=== PATIENT | female | born 1990 ===

== ENCOUNTER 2019-02-26 10:15 | Day surgery (SDC) | payer OTHER ==
[2019-02-26] VITALS (9 sets, daily range): BP systolic 98–116; BP diastolic 61–70
[~2019-02-26] VITALS: Ht 152.4 cm; Wt 68.0 kg
--- NOTE | 2019-02-26 07:12 | Pre-Procedure Note/Attestation ---
Pre-Procedure Note/Attestation Complete Prior to Procedure Planned Procedure: left Procedure Narrative: left elbow olecranon ORIF Indications for Procedure Pre-Operative Diagnosis: left elbow olecranon fx Attestation I attest that I discussed the nature of the procedure; its benefits; risks and complications; and alternatives (and the risks and benefits of such alternatives ), prior to the procedure, with the patient (or the patient's legal cash posting representative). I attest that, if there was a reasonable possibility of needing a blood transfusion, the patient (or the patient's legal cash posting representative) was given the [facility] standardized written summary, pursuant to the Alexy Dianna Blood Safety Act ([place] Health and Safety Code # 1645, as amended). I attest that I re-evaluated the patient just prior to the surgery and that there has been no change in the patient's H&P, except as documented below: NONE Mello Arias MD February 26, 2019 07:12
[~2019-02-26 10:15] MED LIST: NKM; ceFAZolin 1gm IVPB IVPB ONE; celeBREX 200mg Cap **SURGERY PATIENTS ONLY ORAL ONE; oxyCONTIN 20mg tab ORAL ONE
[2019-02-26] MEDS ORDERED: oxyCONTIN 20mg tab ORAL ONE (10:55)
[2019-02-26] MEDS ORDERED: celeBREX 200mg Cap **SURGERY PATIENTS ONLY ORAL ONE (10:55)
[2019-02-26] MEDS ORDERED: Midazolam 2mg/2ml Inj ONE (12:18)
[2019-02-26] MEDS ORDERED: fentaNYL 100 mcg/2 mL IV ONE (12:18)
[2019-02-26] MEDS ORDERED: Propofol 200mg/20ml IV ONE (12:19)
[2019-02-26] MEDS ORDERED: Lidocaine 1% MPF 10mg/ml 5ml ONE (12:19)
[2019-02-26] MEDS ORDERED: Ketorolac 30mg Inj ONE (12:21)
[2019-02-26] MEDS ORDERED: Sterile Water Irrig 1000ml IRRIG ONE (13:00)
[2019-02-26] MEDS ORDERED: LR 1000ml ONE (13:00)
[2019-02-26] MEDS ORDERED: Bacitracin 50000 Units Vial ONE ×2 (13:04→13:05)
[2019-02-26] MEDS ORDERED: Bupivacaine w/Epi 0.5% 30ml Vial INJ ONE (13:04)
[2019-02-26] MEDS ORDERED: NeoSporin Gu Irrig 1ml Amp IRRIG ONE ×2 (13:04→13:05)
[2019-02-26] MEDS ORDERED: TransDerm Scop 1.5mg/72HR Patch TDERMAL ONE ×2 (13:11→14:00)
[2019-02-26] MEDS ORDERED: Tylenol #3 tab (300mg/30mg) ORAL PRN (13:30)
[2019-02-26] MEDS ORDERED: HYDROcodone/Acetamin 5/325 tab ORAL PRN (13:30)
[2019-02-26] MEDS ORDERED: HYDROmorphone 1mg/ml Carpuject SUBQ PRN (13:30)
[2019-02-26] MEDS ORDERED: NS Irrig 1000ml IRRIG ONE ×2 (13:31→13:56)
--- NOTE | 2019-02-26 13:59 | Anethesia Preoperative Eval ---
Anesthesia Pre-op PMH/ROS General Date of Evaluation: February 26, 2019 Time of Evaluation: 13:10 Anesthesiologist: Soraya ASA Score: ASA 2 Mallampati Score Class I : Soft palate, uvula, fauces, pillars visible Class II: Soft palate, uvula, fauces visible Class III: Soft palate, base of uvula visible Class IV: Only hard plate visible Mallampati Classification: Class II Surgeon: Juana Diagnosis: L elbow Fx. Surgical Procedure: ORIF of L elbow Fx Anesthesia History: none Family History: no anesthesia problems Allergies: Coded Allergies: No Known Allergies (Unverified , 02/26/19) Medications: see eMAR Patient NPO?: Yes Past Medical History Cardiovascular: Denies: HTN, CAD, MA, valve dz, arrhythmia, other Pulmonary: Denies: asthma, COPD, DREAD, other Gastrointestinal/Genitourinary: Reports: GERD - mild; Denies: CRI, ESRD, other Neurologic/Psychiatric: Denies: dementia, CVA, depression/anxiety, TIA, other Endocrine: Denies: DM, hypothyroidism, steroids, other HEENT: Denies: cataract (L), cataract (R), glaucoma, [place] (L), [place] (R), other Hematology/Immune: Denies: anemia, DVT, bleeding disorder, other Musculoskeletal/Integumentary: Denies: OA, RA, DJD, DDD, edema, other Other: other - overweight PMH Narrative: as above PSxH Narrative: Breasts implants Anesthesia Pre-op Phys. Exam Physician Exam Last Vital Signs Date Time Temp Pulse Resp B/P (MAP) Pulse Ox O2 Delivery O2 Flow Rate FiO2 02/26/19 10:44 Room Air 02/26/19 10:43 98.2 82 18 100/70 98 Constitutional: NAD Neurologic: CN 2-12 intact Cardiovascular: RRR, no M/R/G Respiratory: CTA Gastrointestinal: S/NT/ND Airway Exam Mallampati Score: Class II MO: full Neck: flexible ROM: full Teeth: intact Dentures: no upper, no lower Anesthesia Pre-op A/P Labs see chart Urine Test Test 02/26/19 10:25 Urine HCG, Qualitative Negative (NEGATIVE) Studies Pre-op Studies: EKG - NSR Risk Assessment & Plan Assessment: ASA2 Plan: GA with LMA Status Change Before Surgery: No Pre-Antibiotics Drug: Ancef 1gr. Given Within 1 Hr of Incision: Yes Time Given: 13:40 Rocky Lira MD February 26, 2019 13:59
[2019-02-26] MEDS ORDERED: Midazolam 2mg/2ml Inj IVP PRN (14:00)
[2019-02-26] MEDS ORDERED: Ketorolac 30mg Inj IV PRN (14:00)
[2019-02-26] MEDS ORDERED: DiphenhydrAMINE 50mg/ml Inj IVP PRN (14:00)
[2019-02-26] MEDS ORDERED: Meperidine 50mg/ml Inj(FOR RIGORS ONLY) IV PRN (14:00)
[2019-02-26] MEDS ORDERED: Metoclopramide 10mg/2ml Inj IVP PRN (14:00)
[2019-02-26] MEDS ORDERED: LR 1000ml 1,000 ML IVLG SCH (14:00)
--- NOTE | 2019-02-26 14:45 | Brief Operative Note ---
Immediate Post Operative Note Operative Note Chief Complaint: left arm pain Pre-op Diagnosis: left olecranon fx Procedure: left olecranon ORIF Post-op Diagnosis: same as pre-op Findings: consistent w/pre-op dx studies Surgeon: md gus Customer Resource Specialist: darcy Taylor Anesthesiologist: md isidro Anesthesia: general Specimen: none Complications: none Condition: stable Fluids: ns Estimated Blood Loss: minimal Drains: none Implant(s) used?: Yes - Annie West February 26, 2019 14:45
--- NOTE | 2019-02-26 14:55 | Immediate Post-Op Evaluation ---
Immediate Post-Op Evalulation Immediate Post-Op Evalulation Procedure: ORIF of L elbow Fx Date of Evaluation: February 26, 2019 Time of Evaluation: 14:54 IV Fluids: 800 Blood Products: none Estimated Blood Loss: min Urinary Output: none Blood Pressure Systolic: 114 Blood Pressure Diastolic: 68 Pulse Rate: 84 Respiratory Rate: 20 O2 Sat by Pulse Oximetry: 99 Temperature (Fahrenheit): 97.8 Pain Score (1-10): 2 Nausea: No Vomiting: No Complications none Patient Status: awake, patent, none Hydration Status: adequate Rocky Lira MD February 26, 2019 14:55
--- NOTE | 2019-02-26 15:04 | Diagnostic Imaging Report ---
Indication: Elbow fracture. Intraoperative imaging Findings: 2 fluoroscopic views of the left elbow were obtained. Surgical reduction of the intra-articular fracture of the olecranon demonstrated. Cerclage wires also noted. IMPRESSION: Intraoperative imaging
--- NOTE | 2019-02-26 15:27 | 48 Hour Post Anesthesia Eval ---
Post Anesthesia Evaluation Procedure: ORIF of L elbow Fx Date of Evaluation: February 26, 2019 Time of Evaluation: 15:26 Blood Pressure Systolic: 108 0: 56 Pulse Rate: 72 Respiratory Rate: 20 Temperature (Fahrenheit): 97.6 O2 Sat by Pulse Oximetry: 98 Airway: patent Nausea: No Vomiting: No Pain Intensity: 2 Hydration Status: adequate Cardiopulmonary Status: stable Mental Status/LOC: patient returned to baseline Follow-up Care/Observations: n/a Post-Anesthesia Complications: none Follow-up care needed: ready to discharge Rocky Lira MD February 26, 2019 15:27
[2019-02-26] MEDS ORDERED: D5 1/2NS 1,000 ML IV SCH (17:00)
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
== END 2019-02-26 16:15 | disposition home or self-care (01) ==
LOC: SUR 10:15
DX: S52.022A Displaced fracture of olecranon process without intraarticular extension of left ulna, initial encounter for closed fracture (principal); K21.9 Gastro-esophageal reflux disease without esophagitis; E66.3 Overweight; Z68.29 Body mass index [BMI] 29.0-29.9, adult; X58.XXXA Exposure to other specified factors, initial encounter; Y92.9 Unspecified place or not applicable
CPT/HCPCS: 24685; 73070; 76000; 81025; C1713; J0690; J1885; J2250; J2405; J2704; J3010; 94003; 94150